=== PATIENT | female | born 1975 | race Caucasian/White ===

== ENCOUNTER 2022-09-26 11:19 | Emergency (ER) | payer BC ==
[~2022-09-26] VITALS: Ht 167.6 cm; Wt 105.8 kg
--- NOTE | 2022-09-26 13:08 | NUR ---
pt come in to the er with pain with urination and urgency. pt has noticed the urgency for a couple of days. pt reports pain radiates to back bilateral.
[2022-09-26 13:16] LABS: BILIRUBIN,URINE NEGATIVE (Neg); CLARITY,URINE SLIGHTLY CLOUDY (Clear); COLOR,URINE YELLOW (Yellow); GLUCOSE, URINE NEGATIVE (Neg); KETONES,URINE 40 mg/dl (Neg); LEUKOCYTE ESTERASE ,URINE NEGATIVE (Neg); NITRITES, URINE NEGATIVE (Neg); OCCULT BLOOD,URINE NEGATIVE (Neg); PH,URINE 5.5 (4.8-8.0); PROTEIN,URINE NEGATIVE (Neg); UROBILINOGEN,URINE 0.2 E.U/dL (0.2-1.0)
[2022-09-26 13:17] LABS: UA COLLECTION TYPE CLN CATCH MIDSTREAM
[2022-09-26 13:26] LABS: MUCUS STRANDS MANY /LPF (Neg)
[2022-09-26 13:27] LABS: HYALINE CASTS 0-3 /LPF (NEGATIVE); SQUAMOUS EPITHELIAL CELL,UR FEW /LPF (FEW)
[2022-09-26 13:28] LABS: BACTERIA,URINE FEW /HPF (Neg); RBC,URINE 0-2 /HPF (0-2)
[2022-09-26 13:30] LABS: RENAL CELLS, URINE FEW /HPF
[2022-09-26] MEDS ORDERED: CEPH-585 PO (14:43)
[2022-09-26 15:06] VITALS: BP 119/72; PULSE 75; RESP 17; O2SAT 97
== END 2022-09-26 15:06 | disposition home or self-care (01) ==
LOC: ER 11:20
DX: N39.0 Urinary tract infection, site not specified (principal); Z79.2 Long term (current) use of antibiotics
CPT/HCPCS: 81001; 87088; 99285